=== PATIENT | male | born 1955 | race Caucasian/White ===

== ENCOUNTER 2022-05-04 05:29 | Inpatient (IN) ==
[2022-04-26 11:30] LABS: Basophils # 0.1 10*3/uL (0.0-0.2); Basophils % 0.7 % (0.0-0.8); Eosinophils # 0.3 10*3/uL (0.0-0.87); Eosinophils % 4.2 % (0.00-10.9); Hematocrit 52.6 VOL% (42.0-52.0); Immature Granulocytes % 0.3 %; Immature Granulocytes Absolute 0.02 #; Lymphocytes # 1.9 10*3/uL (1.4-4.0); Lymphocytes % 27.8 % (21.2-54.2); Mean Corpuscular HGB Conc 32.3 GM/DL (32-36); Mean Corpuscular Volume 79.2 FL (87-102); Mean Platelet Volume 11.1 FL (9.6-12.0); Monocytes # 0.5 10*3/uL (0.11-0.8); Monocytes % 7.7 % (1.7-12.7); Neutrophils % 59.3 % (38.7-73.9); Platelet Count 193 T/CUMM (130-400); Red Blood Count 6.64 MC/CUMM (3.8-5.5); Red Cell Distribution Width 16.4 % (9.3-17.3)
[2022-04-26 11:34] LABS: Bilirubin,Urine Negative (Negative); Blood, Urine Negative (Negative); Glucose,Urine (UA) Negative (Negative); Ketones,Urine Negative (Negative); Mucus,Urine Moderate /LPF (Occasional); Nitrite,Urine Negative (Negative); Protein,Urine 100 mg/dL (Negative); Urine Appearance Clear (Clear); Urine Color Yellow (Yellow); Urine Specific Gravity 1.025 (1.001-1.035); Urine Urobilinogen 0.2 eU/dL (<2.0); Urine pH 6.5 (4.5-8.0)
[2022-04-26 11:40] LABS: PT Patient Result 11.4 SECS (10.1-12.1); Partial Thromboplastin Time 33.3 SECS (23.7-32.9)
[2022-04-26 12:08] LABS: Albumin 3.7 G/DL (3.4-5.0); Bilirubin,Total 0.5 MG/DL (0.20-1.00); Calcium 9.2 MG/DL (8.5-10.1); Osmolality,Calculated 287.1 MOS/KG (273-304); Potassium 4.2 MMOL/L (3.5-5.1); Total Protein 7.2 G/DL (6.4-8.2)
[2022-05-04] MEDS ORDERED: LACTATED RINGERS 1,000 ML IV SCH (05:30)
[2022-05-04] MEDS ORDERED: cefTRIAXone 1,000 MG VIAL ONE (05:45)
[2022-05-04] MEDS ORDERED: ALVIMOPAN 12 MG CAPSULE ONE (05:46)
[2022-05-04] MEDS ORDERED: ALVIMOPAN 12 MG CAPSULE PO ONE (06:00)
[2022-05-04] MEDS ORDERED: ONDANSETRON 4 MG/2 ML VIAL ONE ×2 (06:05→07:53)
[2022-05-04] MEDS ORDERED: MIDAZOLAM 2 MG/2 ML VIAL ONE (06:05)
[2022-05-04] MEDS ORDERED: fentaNYL 100 MCG/2 ML VIAL ONE (06:05)
[2022-05-04] MEDS ORDERED: SUCCINYLCHOLINE 200 MG/10 ML VIAL ONE ×2 (06:05→09:44)
[2022-05-04] MEDS ORDERED: ROCURONIUM 50 MG/5 ML VIAL IV ONE ×2 (06:05→09:44)
[2022-05-04] MEDS ORDERED: propofoL 200 MG/20 ML VIAL IV ONE ×2 (06:05→09:45)
[2022-05-04] MEDS ORDERED: LIDOCAINE 2% 5 ML VIAL ONE (06:05)
[2022-05-04] MEDS ORDERED: SUFentanil 50 MCG/ML AMP ONE (06:26)
[2022-05-04] MEDS ORDERED: KETAMINE 500 MG/10 ML VIAL ONE (06:26)
[2022-05-04] MEDS ORDERED: INDOCYANINE GREEN 25 MG VIAL IV ONE (06:31)
[2022-05-04] MEDS ORDERED: TISSUE ADHESIVE 1 EACH APPLICATOR TOP ONE (06:31)
[2022-05-04] MEDS ORDERED: MANNITOL 12.5 GM/50 ML VIAL IV ONE (06:34)
[2022-05-04] MEDS ORDERED: ALBUMIN 5% 25.0 GM/500 ML VIAL IV ONE (06:39)
[2022-05-04] MEDS ORDERED: DEXAMETHASONE 4 MG/1 ML VIAL ONE (07:53)
[2022-05-04] MEDS ORDERED: DESFLURANE 1 UNIT/15 MINUTE INH ONE ×2 (07:53→09:27)
[2022-05-04] MEDS ORDERED: GLYCOPYRROLATE 0.4 MG/2 ML VIAL ONE (07:53)
[2022-05-04] MEDS ORDERED: ACETAMINOPHEN INJ 1,000 MG/100 ML VIAL IV ONE (07:53)
[2022-05-04] MEDS ORDERED: LACTATED RINGERS 1,000 ML IV ONE (08:57)
[2022-05-04] MEDS ORDERED: SUGAMMADEX 200 MG/2 ML VIAL IV ONE (09:27)
[2022-05-04] MEDS ORDERED: SEVOFLURANE 1 UNIT/15 MINUTE INH ONE ×3 (09:28→10:03)
[2022-05-04] MEDS ORDERED: CYCLOBENZAPRINE 10 MG TABLET PO PRN (09:49)
[2022-05-04] MEDS ORDERED: ONDANSETRON 4 MG/2 ML VIAL IV PRN (10:31)
[2022-05-04] MEDS: HYDROmorphone 1 MG/1 ML SYRINGE IV PRN ×5 (10:35→20:20)
[2022-05-04 10:58] LABS: Mucus,Urine Occasional /LPF (Occasional); RBC,Urine 2 /HPF (0-4); Renal Epithelial Cells,Urine Occasional /HPF (<1)
[2022-05-04 10:59] LABS: Bilirubin,Urine Negative (Negative); Blood, Urine Trace mg/dL (Negative); Glucose,Urine (UA) Negative (Negative); Ketones,Urine Negative (Negative); Nitrite,Urine Negative (Negative); Protein,Urine 100 mg/dL (Negative); Urine Appearance Clear (Clear); Urine Color Yellow (Yellow); Urine Urobilinogen 0.2 eU/dL (<2.0)
[2022-05-04] MEDS: SODIUM CHLORIDE 0.9% 1,000 ML IV SCH ×3 (11:30→20:23)
[2022-05-04] MEDS: ONDANSETRON 4 MG/2 ML VIAL IV PRN ×3 (12:26→20:13)
[2022-05-04] MEDS: oxyCODONE/ACETAMINOPHEN 5-325 MG TABLET PO PRN (14:13)
[2022-05-04] MEDS: PROMETHAZINE 25 MG/1 ML VIAL IM PRN ×2 (17:24→22:00)
[2022-05-04] MEDS: hydrALAZINE 25 MG TABLET PO SCH (19:20)
[2022-05-04] MEDS: DOXAZOSIN 1 MG TABLET PO SCH ×2 (19:20→20:23)
[2022-05-04] MEDS: QUEtiapine 100 MG TABLET PO SCH (20:12)
[2022-05-04] MEDS: risperiDONE 0.5 MG TABLET PO SCH (20:12)
[2022-05-04] MEDS: ALVIMOPAN 12 MG CAPSULE PO SCH (20:12)
[2022-05-04] MEDS ORDERED: hydrALAZINE 20 MG/1 ML VIAL IV PRN (23:19)
[2022-05-05] MEDS: ONDANSETRON 4 MG/2 ML VIAL IV PRN (00:20)
[2022-05-05] MEDS: oxyCODONE/ACETAMINOPHEN 5-325 MG TABLET PO PRN ×6 (01:05→22:05)
[2022-05-05] MEDS: SODIUM CHLORIDE 0.9% 1,000 ML IV SCH ×2 (02:08→06:23)
[2022-05-05] MEDS ORDERED: cefTRIAXone 1,000 MG in SODIUM CHLORIDE 0.9% 100 ML IV ONE (06:00)
[2022-05-05 06:56] LABS: Basophils % 0.1 % (0.0-0.8); Hematocrit 53.5 VOL% (42.0-52.0); Hemoglobin 17.1 GM/DL (14.0-18.0); Immature Granulocytes % 0.3 %; Immature Granulocytes Absolute 0.04 #; Lymphocytes # 1.1 10*3/uL (1.4-4.0); Lymphocytes % 8.1 % (21.2-54.2); Mean Corpuscular Volume 80.8 FL (87-102); Mean Platelet Volume 12.2 FL (9.6-12.0); Monocytes # 1.2 10*3/uL (0.11-0.8); Monocytes % 8.6 % (1.7-12.7); Neutrophils % 82.9 % (38.7-73.9); Platelet Count 170 T/CUMM (130-400); Red Blood Count 6.62 MC/CUMM (3.8-5.5); Red Cell Distribution Width 17.5 % (9.3-17.3); White Blood Count 13.9 T/CUMM (4-12)
[2022-05-05 07:22] LABS: Calcium 8.7 MG/DL (8.5-10.1); Osmolality,Calculated 284.4 MOS/KG (273-304); Potassium 3.4 MMOL/L (3.5-5.1)
[2022-05-05] MEDS: risperiDONE 0.5 MG TABLET PO SCH ×2 (09:10→20:52)
[2022-05-05] MEDS: LOSARTAN 50 MG TABLET PO SCH (09:10)
[2022-05-05] MEDS: CHLORTHALIDONE 25 MG TABLET PO SCH (09:10)
[2022-05-05] MEDS: PANTOPRAZOLE 40 MG TABLET PO SCH (09:10)
[2022-05-05] MEDS: hydrALAZINE 25 MG TABLET PO SCH (09:10)
[2022-05-05] MEDS: allopurinoL 300 MG TABLET PO SCH (09:10)
[2022-05-05] MEDS: ALVIMOPAN 12 MG CAPSULE PO SCH ×2 (09:10→20:52)
[2022-05-05] MEDS: METOPROLOL SUCCINATE XL 100 MG TABLET PO SCH (09:10)
[2022-05-05] MEDS: POTASSIUM CHLORIDE 20 MEQ TABLET PO PRN ×3 (09:10→14:00)
[2022-05-05] MEDS: SERTRALINE 50 MG TABLET PO SCH (09:10)
[2022-05-05] MEDS ORDERED: cloNIDine 0.1 MG TABLET PO PRN (09:45)
[2022-05-05] MEDS: DOXAZOSIN 1 MG TABLET PO SCH (20:52)
[2022-05-05] MEDS: QUEtiapine 100 MG TABLET PO SCH (20:52)
[2022-05-06] MEDS: oxyCODONE/ACETAMINOPHEN 5-325 MG TABLET PO PRN ×3 (02:42→15:30)
[2022-05-06 05:24] LABS: Calcium 8.6 MG/DL (8.5-10.1); Osmolality,Calculated 283.5 MOS/KG (273-304); Potassium 3.1 MMOL/L (3.5-5.1)
[2022-05-06] MEDS: ALVIMOPAN 12 MG CAPSULE PO SCH (09:25)
[2022-05-06] MEDS: METOPROLOL SUCCINATE XL 100 MG TABLET PO SCH (09:25)
[2022-05-06] MEDS: SERTRALINE 50 MG TABLET PO SCH (09:25)
[2022-05-06] MEDS: risperiDONE 0.5 MG TABLET PO SCH (09:26)
[2022-05-06] MEDS: CHLORTHALIDONE 25 MG TABLET PO SCH (09:26)
[2022-05-06] MEDS: LOSARTAN 50 MG TABLET PO SCH (09:26)
[2022-05-06] MEDS: PANTOPRAZOLE 40 MG TABLET PO SCH (09:27)
[2022-05-06] MEDS: allopurinoL 300 MG TABLET PO SCH (09:27)
[2022-05-06 11:03] VITALS: BP 167/79
[2022-05-06] MEDS ORDERED: POTASSIUM CHLORIDE 20 MEQ TABLET PO ONE ×2 (13:30→15:30)
[2022-05-06] MEDS: ONDANSETRON 4 MG/2 ML VIAL IV PRN (15:47)
== END 2022-05-06 15:55 | disposition home or self-care (01) | DRG 657 ==
LOC: N.SDSINP 05:29 → N.OR 05:29 → N.SDSINP 05:34 → N.3E 09:45
PROVIDERS: ADMIT Urology; ATTEND Urology